=== PATIENT | male | born 1955 | race Caucasian/White ===

== ENCOUNTER 2019-05-15 14:00 | Emergency (ER) | payer BC, MEDICARE, OTHER ==
[~2019-05-15] VITALS: Ht 177.8 cm; Wt 76.2 kg
[~2019-05-15 14:00] MED LIST: CIPR7.5D LEFT EAR; IBUP-1542 PO
[2019-05-15 14:01] VITALS: BP 111/64; PULSE 72; RESP 18; Ht 177.8 cm; Wt 76.2 kg
== END 2019-05-15 14:49 | disposition home or self-care (01) ==
LOC: E/R 14:00
DX: L73.9 Follicular disorder, unspecified (principal); I10 Essential (primary) hypertension; E11.9 Type 2 diabetes mellitus without complications
CPT/HCPCS: 99283